=== PATIENT | female | born 1990 | race African-American/Black ===

== ENCOUNTER 2021-04-16 07:28 | Emergency (ER) | payer MEDICAID, OTHER ==
[~2021-04-16] VITALS: Ht 175.3 cm; Wt 81.6 kg
[2021-04-16 11:05] VITALS: BP 132/79
== END 2021-04-16 11:52 | disposition home or self-care (01) ==
LOC: ER 07:28
DX: J06.9 Acute upper respiratory infection, unspecified (principal); F17.210 Nicotine dependence, cigarettes, uncomplicated; F32.9 Major depressive disorder, single episode, unspecified; Z20.822 Contact with and (suspected) exposure to COVID-19
CPT/HCPCS: 36415; 71045; 87426